=== PATIENT | male | born 1995 | race Caucasian/White ===

== ENCOUNTER 2017-05-03 14:52 | Emergency (ER) | payer SELFPAY ==
[~2017-05-03] VITALS: Ht 175.3 cm; Wt 60.8 kg
[~2017-05-03 14:52] MED LIST: FOCALIN XR30 MG PO
[2017-05-03] MEDS ORDERED: ULTRAM50 MG PO (16:17)
[2017-05-03 16:45] VITALS: BP 135/82
== END 2017-05-03 16:46 | disposition home or self-care (01) ==
LOC: EME 14:52
PROC: 2W3DX1Z Immobilization of Left Lower Arm using Splint (ICD-10-PCS; principal; 2017-05-03)
DX: S62.357A Nondisplaced fracture of shaft of fifth metacarpal bone, left hand, initial encounter for closed fracture (principal); S60.512A Abrasion of left hand, initial encounter; W22.8XXA Striking against or struck by other objects, initial encounter; F17.200 Nicotine dependence, unspecified, uncomplicated
CPT/HCPCS: 73130; 99281; 99284